=== PATIENT | male | born 1985 | race Two or more races ===

== ENCOUNTER 2019-02-13 17:14 | Emergency (ER) | payer SELFPAY ==
[~2019-02-13] VITALS: Ht 167.6 cm; Wt 59.0 kg
[2019-02-13 18:03] VITALS: BP 140/82
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
[2019-02-13] MEDS ORDERED: Acetaminophen 500mg (ES) tab ORAL ONE (18:15)
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
[2019-02-13] MEDS ORDERED: IBUPROFEN600 MG ORAL (18:59)
[2019-02-13] MEDS ORDERED: ROBAXIN-750750 MG PO (18:59)
[2019-02-13] MEDS ORDERED: LIDODERM700 M1 TOPIC (18:59)
[2019-02-13 19:08] VITALS: BP 132/74
--- NOTE | 2019-02-13 19:09 | NUR ---
ER DISCHARGE NOTE: Patient is cleared to be discharged per ERPA after discussing about x-ray results with patient, pt is aox4, on room air, with stable vital signs. pt was given dc and prescription instructions, pt was able to verbalize understanding, pt id band removed. pt is able to ambulate with steady gait. pt took all belongings.
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
--- NOTE | 2019-02-14 09:54 | Diagnostic Imaging Report ---
Indication: Dyspnea Comparison: None A single view chest radiograph was obtained. Findings: Cardiomediastinal appearance is within normal limits for age. The lungs are clear. Pulmonary vascularity is appropriate. The diaphragmatic contour is smooth and costophrenic angles are sharp. No pleural effusions are identified. The bones are unremarkable. Impression: No acute findings
== END 2019-02-13 19:10 | disposition home or self-care (01) ==
LOC: EMR 18:04
DX: S20.212A Contusion of left front wall of thorax, initial encounter (principal); S29.012A Strain of muscle and tendon of back wall of thorax, initial encounter; S16.1XXA Strain of muscle, fascia and tendon at neck level, initial encounter; V43.62XA Car passenger injured in collision with other type car in traffic accident, initial encounter; Y92.410 Unspecified street and highway as the place of occurrence of the external cause; M54.6 Pain in thoracic spine
CPT/HCPCS: 71045; 99284